=== PATIENT | female | born 1985 | race African-American/Black ===

== ENCOUNTER 2021-08-30 14:39 | Emergency (ER) | payer OTHER | END 2021-08-30 15:31 | disposition home or self-care (01) | LOC: CSHERS 14:39 | DX: Z11.3 Encounter for screening for infections with a predominantly sexual mode of transmission (principal) | CPT/HCPCS: 99281 ==

== ENCOUNTER 2023-09-03 09:13 | Emergency (ER) | payer OTHER, SELFPAY | END 2023-09-03 11:38 | disposition home or self-care (01) | LOC: CSHERS 09:13 | DX: M25.511 Pain in right shoulder (principal); X50.0XXA Overexertion from strenuous movement or load, initial encounter ==